=== PATIENT | male | born 2000 | race Caucasian/White ===

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

== ENCOUNTER → 2018-05-09 | Outpatient (CLI) | payer BC | LOC: BMCIMAGING 14:01 | PROVIDERS: ATTEND Family Medicine | DX: S59.902A Unspecified injury of left elbow, initial encounter (principal) ==

== ENCOUNTER 2018-06-02 16:07 | Emergency (ER) | payer BC ==
[2018-06-02] MEDS ORDERED: NS 1,000 ML IV ONE (16:10)
--- NOTE | 2018-06-02 16:10 | EDPHY ---
H & P Time Seen by Provider: 06/02/18 16:10 HPI/ROS: CHIEF COMPLAINT: Seizure HISTORY OF PRESENT ILLNESS: This is a 18-year-old male brought to the emergency department by ambulance. His friends reported to the paramedics that he fell to the ground and had rhythmic movements of his arms and legs with associated loss of consciousness. He has no history of seizure disorder. He tells me that he was smoking tobacco and marijuana. He snorted cocaine either earlier today or last night, he is not sure which. Denies alcohol use today. He is also on a Xanax taper. He is taking 1/3 of a 2 mg of Xanax tablet daily. This is a slow wean from 2 mg daily. He has been weaning himself over the last 2 months but did not take any at all today. He also takes Prozac but occasionally forgets to take that. He believes that he has been dehydrated. He does not recall what happened. He did not injure himself. He denies chest pain or shortness of breath. REVIEW OF SYSTEMS: A ten system review of systems was performed and is negative with the exception of the items mentioned in the HPI. 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 Occasional drug use as above. Alcohol . His family lives in the [place] area. General Appearance: Alert. Vital signs reviewed. Heart rate 102. Blood pressure 156/100. Eyes: Pupils equal and round, no conjunctival injection, no discharge. Anicteric. ENT, Mouth: Mucous membranes are moist, no oropharyngeal erythema or edema. No dental or tongue injury. Neck: No lymphadenopathy, supple. Nontender to palpation over the cervical spine in the midline. Respiratory: Lungs are clear to auscultation; no wheezes, rales, or rhonchi. Cardiovascular: Regular rate and rhythm; no murmur, rub, or gallop. Gastrointestinal: Abdomen is soft and nontender, no masses or organomegaly, bowel sounds normal. Skin: Warm and dry, no rashes on exposed skin, normal color. Back: Nontender to palpation over the thoracolumbar spine. No CVAT. Extremities: No lower extremity edema, no calf tenderness or swelling. Neurological: Alert and oriented. Moving all four extremities easily and equally. Cranial nerves II through XII are examined and are intact (visual acuity not tested). Strength is 5 over 5 bilaterally with testing of all major motor groups. Sensation is intact to light touch over all 4 extremities. Deep tendon reflexes are 2+ in the biceps and knees bilaterally. Gait is normal. Psychiatric: Normal affect. - Medical/Surgical History Hx Asthma: Yes Hx Chronic Respiratory Disease: No Hx Diabetes: No Hx Cardiac Disease: No Hx Renal Disease: No Hx Cirrhosis: No Hx Alcoholism: No Hx HIV/AIDS: No Hx Splenectomy or Spleen Trauma: No Other PMH: PMHx: anxiety, childhood asthma. PSHx: tonsillectomy - Social History Smoking Status: Never smoked Constitutional: Initial Vital Signs Temperature (C) 36.7 C 06/02/18 16:11 Heart Rate 100 06/02/18 16:11 Respiratory Rate 18 06/02/18 16:11 Blood Pressure 156/100 H 06/02/18 16:11 O2 Sat (%) 92 06/02/18 16:11 O2 Delivery Mode Room Air Allergies/Adverse Reactions: No Known Allergies Allergy (Unverified 06/14/17 19:40) Home Medications: Medication Instructions Recorded Xanax 06/14/17 Medical Decision Making - Diagnostics EKG Interpretation: 12 lead EKG is interpreted in [place] by emergency department physician. It shows sinus rhythm with a rate of 102. There is some ST elevation suggestive of normal early repolarization pattern. ED Course/Re-evaluation: Patient was observed in the emergency department for 1 hr 45 min. He had no further seizure activity and remained awake and alert throughout his stay. History is from the paramedics, no witnesses are available for me to obtain a history. I am not entirely certain what happened on do not know for certain whether he had a seizure or not. He thinks that he might have had a seizure because he missed his Xanax dose today but I think that is unlikely as he takes only 1/3 of a 2 mg tablet daily. I suspect that if he had a seizure was related to cocaine and marijuana use. While in the emergency department his heart rate normalized (he was initially tachycardic). CBC and chemistries were reviewed. He has an anion gap with a CO2 of 13, no other significant abnormalities. He is given follow-up instructions, including advice to take his prescription medicines appropriately and avoid illicit substances and alcohol. He understands that he will need to be re-evaluated immediately if he has another seizure. At this point in time the evaluation was somewhat limited- -head CT was not performed. He is quite concerned about confidentiality and testing in the emergency department. He has a normal neurologic exam and his behavior has been completely appropriate during my evaluation. He has not had trauma. I have agreed to forego CT testing. EKG shows signs of early repolarization. His blood pressure remains slightly high during his stay in the emergency department. It is recommended that this be rechecked. He has a ride home. He has been assured that this visit is confidential. Differential Diagnosis: Seizure including but not limited to electrolyte abnormality, alcohol withdrawal , medication noncompliance, head injury, and breakthrough seizure. - Data Points Laboratory Results: Laboratory Results 06/02/18 16:29 06/02/18 16:29 Medications Given: Discontinued Medications Sodium Chloride (Ns) 1,000 mls @ 0 mls/hr IV ONCE ONE; Wide Open PRN Reason: Protocol Stop: 06/02/18 16:11 Last Admin: 06/02/18 16:21 Dose: 1,000 mls Departure - Departure Disposition: Home, Routine, Self-Care Clinical Impression: Seizure Condition: Good Instructions: Nonepileptic Seizures (ED) Additional Instructions: As we discussed, it is not entirely clear what happened. I am assuming that you might have had a seizure, possibly related to the fact that you missed today 's Xanax dose and to the use of a combination of illicit drugs and marijuana. Please take all of your medications as prescribed. If you have another seizure you should be re-evaluated. Referrals: MARISELA Chapman,. [Clinic] - As per Instructions
[2018-06-02 16:35] LABS: PLATELET COUNT 365 10^3/uL (150-400)
--- NOTE | 2018-06-02 17:52 | CPEKG ---
Test Reason : OPEN Blood Pressure : / mmHG Vent. Rate : 102 BPM Atrial Rate : 102 BPM P-R Int : 148 ms QRS Dur : 090 ms QT Int : 336 ms P-R-T Axes : 076 058 058 degrees QTc Int : 438 ms Sinus tachycardia Left atrial enlargement ST elev, probable normal early repol pattern Confirmed by Nohemy Godoy ([id number]) on 06/02/2018 5:51:41 PM Referred By: Confirmed By:Nohemy Godoy
[2018-06-02 18:00] VITALS: BP 145/78
== END 2018-06-02 18:01 | disposition home or self-care (01) ==
LOC: EDUNIT#
DX: R56.9 Unspecified convulsions (principal); E86.9 Volume depletion, unspecified